=== PATIENT | female | born 1960 | race Caucasian/White ===

== ENCOUNTER → 2017-08-25 | Outpatient (CLI) | payer OTHER | END | disposition home or self-care (01) | LOC: LAB SHORT 10:42 → PLD 10:42 | DX: D22.39 Melanocytic nevi of other parts of face (principal) | CPT/HCPCS: 88305 ==

== ENCOUNTER → 2019-12-26 | Outpatient (CLI) | payer OTHER | END | disposition home or self-care (01) | LOC: LAB SHORT 08:01 → PLD 08:01 | DX: B37.2 Candidiasis of skin and nail (principal); L57.0 Actinic keratosis; L01.02 Bockhart's impetigo | CPT/HCPCS: 88305 ==